=== PATIENT | female | born 1980 | race Caucasian/White ===

== ENCOUNTER → 2020-11-27 07:54 | Outpatient (CLI) | payer OTHER, SELFPAY ==
[2020-11-27 20:42] LABS: SARS-CoV-2 RNA PCR Positive
== END ==
PROVIDERS: PCP Family Medicine; Visit Provider Family Medicine
DX: U07.1 COVID-19 (principal)
CPT/HCPCS: C9803; U0003; U0005

== ENCOUNTER 2022-02-09 13:32 | Outpatient (CLI) | payer OTHER, SELFPAY ==
--- NOTE | 2022-02-09 14:26 | ECHO_ITS ---
Patient Info Name: Diana Garcia Age: 41 years : 1980 Gender: Female Ht: 63 in Wt: 170 lbs BSA: 1.88 m2 HR: 99 bpm BP: 127 / 84 mmHg Technical Quality: Good Exam Date: 02/09/2022 2:39 PM Exam Location: [facility] Patient Status: Outpatient Admit Date: 02/09/2022 Staff Ordering Physician: Prisca Duff NP Foreign Student Adviser Teacher: Marito Alfaro, IRASEMA, RT Attending Provider: Prisca Duff NP Referring Physician: Omega WILKINSON; Exam Type: CA echo doppler color flow Study Info Indications R01.1 - Cardiac murmur, unspecified Complete two-dimensional, color flow and Doppler transthoracic echocardiogram is performed. Strain analysis performed. Summary 1. Complete two-dimensional, color flow and Doppler transthoracic echocardiogram is performed. 2. Left ventricular chamber dimension is normal. 3. Left ventricular systolic function is normal, estimated at 60-65%. 4. The left ventricular diastolic function is grade I diastolic dysfunction. 5. E/e' 4 is not elevated. 6. There is mild tricuspid valve regurgitation. 7. No pulmonary hypertension, estimated pulmonary arterial systolic pressure is 29 mmHg. Left Ventricle E/e' 4 is not elevated. Left ventricular chamber dimension is normal. Left ventricular systolic function is normal, estimated at 60-65%. The left ventricular diastolic function is grade I diastolic dysfunction. Right Ventricle Right ventricular systolic function is normal and with normal TAPSE 2.4 cm. Right ventricular chamber dimension is normal. Left Atria Left atrial chamber dimension is normal. Right Atria Right atrial chamber dimension is normal. Aortic Valve The aortic valve is trileaflet. There is no aortic valve stenosis. There is no aortic valve regurgitation. Pulmonic Valve There is no pulmonic regurgitation. Mitral Valve There is no mitral valve stenosis. There is no mitral valve regurgitation. Tricuspid Valve There is mild tricuspid valve regurgitation. No pulmonary hypertension, estimated pulmonary arterial systolic pressure is 29 mmHg. Pericardium/Pleural There is no pericardial effusion. Inferior Vena Cava Normal inferior vena cava with >50% collapse upon inspiration consistent with normal right atrial pressure, 5 mmHg. Aorta The aortic root size at the sinus of Valsalva is normal. Left Ventricular Outflow Tract Name Value Normal LVOT 2D LVOT Diameter 2.0 cm LVOT Doppler LVOT Peak Gradient 4 mmHg LVOT Mean Gradient 2 mmHg LVOT VTI 16 cm LVOT VTI/AV VTI Ratio 0.6 LVOT Stroke Volume 49 ml LVOT CO 5.6 l/min LVOT CI 3.0 l/min/m2 Mitral Valve Name Value Normal MV Doppler
--- NOTE | 2022-02-09 14:28 | ECG_ITS ---
Measurements Intervals [place] Rate: 86 P: 41 CT: 132 QRS: 8 QRSD: 85 T: 30 QT: 368 QTc: 442 Interpretive Statements SINUS RHYTHM LOW QRS VOLTAGE IN PRECORDIAL LEADS BASELINE ARTIFACT- II, III, AVF, V3 BORDERLINE ECG Electronically Signed On 02-09-2022 15:18:02 CDT by Nacho Tripp D.O.
== END 2022-02-09 13:33 | disposition home or self-care (01) ==
LOC: ANHCARD 13:33
PROVIDERS: PCP Family Medicine; Visit Provider Nurse Practitioner Family
DX: R01.1 Cardiac murmur, unspecified (principal); Z34.90 Encounter for supervision of normal pregnancy, unspecified, unspecified trimester; Z3A.00 Weeks of gestation of pregnancy not specified; I36.1 Nonrheumatic tricuspid (valve) insufficiency
CPT/HCPCS: 93005; 93306

== ENCOUNTER 2023-08-09 01:05 | Day surgery (SDC) | payer OTHER, SELFPAY ==
[2023-08-05 11:59] VITALS: BMI 27.3
--- NOTE | 2023-08-05 12:04 | PC.NURSE ---
Report to the Outpatient Waiting Room, entrance under the green pavilion located off [facility], at time 1300 on date 08/09/23. Planned Procedure Time: 1400. Time changes happen often and if your time is changed the preop area will call you the afternoon before. - You and your visitor will be asked to self-screen and do not enter if you have any COVID symptoms. - A mask is optional within the hospital at this time. Patients may have LIGHT BREAKFAST/LUNCH. Take the following medications with a SIP of water the morning of surgery: PRESCRIBED DO NOT STOP ANY OF YOUR OTHER PRESCRIPTION MEDICATIONS PRIOR TO SURGERY ?EXCEPT THE FOLLOWING Medications to discontinue per physician: N/A Date to take last dose: N/A Please no make-up, nail sinhala, hairspray, perfume, deodorant, or body powder the day of surgery. No jewelry (including any body piercings) or valuables the day of surgery, leave them at home. Please take a shower or bath the night before, or the morning of, surgery with an antibacterial soap. Wear comfortable, loose fitting clothing. - Jewelry must be removed prior to entering the operating room. Rings and piercings that are not removed may be cut off. - The hospital will not accept responsibility for valuables. - Please leave all valuables, including medications, at home the day of surgery. YOU MAY DRIVE YOURSELF HOME AFTER SURGERY. Follow any additional instructions given to you from your surgeon. If you or anyone in your household have experienced Covid symptoms in the past week, please notify your surgeon or the nurse liaison at the phone number below for possible testing. Telephone instructions given to PT - FRANCISCO CAMACHO and asked if any additional questions and then verbalized understanding. Patient advised to call surgeon office or pre surgery nurse liaison [phone] if any additional questions.
[2023-08-09] VITALS (9 sets, daily range): BP systolic 112–126; BP diastolic 55–74; PULSE 75–92; RESP 16; TEMP 37.2; O2SAT 96–100
--- NOTE | 2023-08-09 14:35 | PM.IMHP ---
H&P: HPI History of Present Illness Date/Time: 08/09/23 14:35 Chief Complaint: Bilateral upper extremity subcutaneous masses Narrative: Diana is a 43 y/o female who presents to the office at the request of Allie EMERSON for evaluation of multiple subcutaneous masses. These masses are located on her bilateral upper extremities. Patient states these masses have been present for over 20 years. She states they have gradually increased in size. She denies any pain, but states they are tender when pressure is applied. She denies any redness or drainage. Review of Systems Review of Systems: The remainder of the review of systems to include constitutional, HEENT, cardiovascular, respiratory, GI, , integumentary, musculoskeletal, endocrine, immunologic, hematologic, psychiatric, and neurologic are all negative except for which is mentioned above in the HPI. [facility] Past Medical History Medical History BMI 25.0-25.9,adult BMI 27.0-27.9,adult BMI 28.0-28.9,adult BMI 29.0-29.9,adult Conceived by in vitro fertilization Exposure to COVID-19 virus History of in vitro fertilization Surgical History Surgical History H/O tubal ligation History of D&C History of hernia repair Family History Family History Father Anemia Hypertension Tobacco abuse Mother Anxiety Acute myocardial infarction Heart disease Sibling Diabetes mellitus Other Cancer Family history of lung cancer Social History Social History Smoking status: Former smoker Tobacco type: cigarettes Second hand tobacco smoke exposure: Yes Smoking end date: 10/04/14 Additional smoking assessment comments: FORMER SOCIAL SMOKER Alcohol intake: current Alcohol use details: RARE Substance use: never Substance use type: does not use Lack of Transportation: No Lack of Food: Never True Current Housing: I Have Housing Concerned About Future Housing: No Difficulty Paying Gas/Electric Bills: No Difficulty Paying for Meds: No Currently Unemployed: No Education: Trade/Vocational Certificate Difficulty w/ Childcare or Family Care: No Living arrangements: with family Occupation/Education: occupation 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 Gender identity (if verbalized by the patient): Female Spiritual care concerns: No Meds Home Medications and Allergies Home Medications Medication Instructions Recorded Confirmed Type bupropion HCl 300 mg 24 hr tablet, 300 mg PO QAM #90 tabs 07/01/23 08/09/23 Rx extended release (Wellbutrin XL) Allergies Allergy/AdvReac Type Severity Reaction Status Date / Time No Known Allergies Allergy Verified 08/09/23 13:30 Vital Signs Vital Signs - 24 hr 08/09/23 13:41 Temperature 37.2 C Pulse Rate 80 Respiratory Rate 16 Blood Pressure 122/60 Pulse Oximetry 100 Oxygen Delivery Room Air Exam Const: General: comfortable and no acute distress HENMT: Ears: TM's normal bilaterally Face/Nose/Sinus: Normal nares present Mouth: Yes moist mucous membranes Eyes: General: appearance normal, both eyes and all related structures Sclera: sclerae normal Pupils: Equal, round and reactive pupils present Neck: Neck: supple and no JVD Resp: Effort & Inspection: normal respiratory effort Auscultation: clear to auscultation bilaterally Cardio: Rate: regular rate Rhythm: regular rhythm GI: GI Palp: Yes Soft to palpation, No Firmness to palpation present (GI), No Tenderness to palpation present (GI), No Guarding due to palpation present (GI) and No Hernia present Skin: Other: Right mid volar forearm: 2x1.5cm SQ mass, 1x1cm SQ mass Left volar distal forearm: 1.5x1cm SQ mass, 1x1cm SQ mass proximal left volar forearm just distal to elbow.
--- NOTE | 2023-08-09 14:43 | WPDHPUPDATE1 ---
History and Physical Update Update Date/Time: 08/09/23 14:43 History and Physical has been reviewed, including an updated exam of the patient. There are NO changes in the patient's condition. Risks, benefits, and alternatives have been discussed and questions answered. Patient agrees to proceed with procedure.
[2023-08-09] MEDS: LIDO 1%/EPINEPHRINE 1:100,000 50 ML VIAL 30 ML INFILTRATE (15:26)
--- NOTE | 2023-08-09 16:13 | PM.OP ---
Procedure Note - Brief Procedure Note - Brief Date of procedure: 08/09/23 Drashan Forearm Lipomas Post-op diagnosis: Same Procedure performed: Excision of lipoma right forearm x3 and left forearm x3. 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
--- NOTE | 2023-08-11 12:23 | W.PM.PROC2 ---
Procedure Note - Detailed Date of Procedure 08/09/23 Pre-op Diagnosis Darshna Forearm Lipomas Post-op Diagnosis Same Procedure Performed Excision of bilateral forearm lipomas ( left forearm x3, right forearm x3 ). 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 She has soreness when she bumps these lipomatous masses on hard surfaces. Clinical examination reveals and be consistent with benign lipomas. She presents now for excision of lipomas. Findings All the lipomas were excised in the appeared to be consistent with benign neoplasm such as benign Lipomas. Three lipomas were removed off of each forearm for a total of 6 lipomas. On the right arm lipomas measured 1x0.5x0.3cm, 1.5x1x0.5cm, and 2x1.5x1cm. On the left forearm lipomas measured 1.5x1x0.5cm, 1.5x1x0.5cm, and 1.2x1x0.7 cm. Description of Procedure After informed consent was obtained patient brought to the operating room she was placed in a supine position on the operating table. Bilateral upper extremities were prepped from the wrist proximally to the axilla circumferentially in the usual sterile fashion. A time-out was then performed correctly identifying the patient as well as procedure to be performed and verifying all the site markings. I then proceeded to excise the lipoma on the right forearm 1st. 1% lidocaine mixed with 0.5% Marcaine was injected around each of the 3 marked lipomas on the right volar forearm. Over each lipoma after I ensured that the patient had adequate anesthesia I made a transverse incision utilizing a scalpel and dissected down through the dermis skin with a scalpel. Each of these lipomas had a good capsule and spread around the with Metzenbaum scissors and deliver the up out of the subcutaneous tissues. They were then resected off utilized electrocautery. The lipomas measured 1x0.5x0.3cm, 1x1x0.5cm, and 2x1.5x1cm. These were all sent together in a single container to pathology. I then irrigated out the incision sterile saline solution hemostasis was then achieved electrocautery. All 3 the incisions were closed in similar fashion by placement of 3-0 Vicryl sutures in subcutaneous tissues and the skin edges were approximated utilizing a running subcuticular 4-0 Monocryl suture. All incisions were then cleaned and then skin glue was applied. I then turned my attention to excising this lipomatous off of the left volar forearm. Again the same local anesthetic mixture was then used to anesthetize over each of the marked lipomas in the left volar forearm. After adequate anesthesia was achieved I then made either longitudinal or transverse incisions over each of the masses with a scalpel and dissected down through the dermis of the skin. Then with Metzenbaum scissors I spread around the capsule the lipoma was then deliver them up out of the subcutaneous tissues. Electrocautery was used to completely excise these and the subcutaneous tissues. All 3 of these lipomas were measured and they were 1.5x1x0.5cm, 1.5x1x0.5cm, and 1.2x1x0.7cm. All 3 of these lipomas were sent to pathology in a single container for evaluation. Again these incisions were then irrigated with sterile saline solution and hemostasis was achieved utilizing electrocautery. there was then closed utilizing interrupted 3-0 Vicryl sutures subcu tissues the skin edges were then approximated utilizing a running subcuticular 4 Monocryl suture. The incisions were then cleaned as well and then skin glue was applied. The patient tolerated the procedure well no complications. All sponges, needles, and instrument counts were correct at the end procedure. EBL was _10__cc. The patient was taken to the outpatient surgery area in stable and satisfactory condition where she was allowed to immediately addressed and was discharged home as this was a l
== END 2023-08-09 16:29 | disposition home or self-care (01) ==
PROVIDERS: PCP Family Medicine; Visit Provider Surgery
PROC: (CPT 25075; principal; 2023-08-09 14:00)
DX: D17.21 Benign lipomatous neoplasm of skin and subcutaneous tissue of right arm (principal); D17.22 Benign lipomatous neoplasm of skin and subcutaneous tissue of left arm; Z87.891 Personal history of nicotine dependence
CPT/HCPCS: 25075 ×3; 25071; 88304